=== PATIENT | female | born 1995 | race Caucasian/White ===

== ENCOUNTER 2018-10-14 23:45 | Emergency (ER) | payer MEDICAID ==
[~2018-10-14] VITALS: Ht 177.8 cm; Wt 122.0 kg
[2018-10-15] MEDS ORDERED: IBUPROFEN 800MG TABLET PO ONE (01:45)
[2018-10-15 01:58] VITALS: BP 134/78
== END 2018-10-15 01:56 | disposition home or self-care (01) ==
LOC: ER 23:45
DX: S90.861A Insect bite (nonvenomous), right foot, initial encounter (principal); W57.XXXA Bitten or stung by nonvenomous insect and other nonvenomous arthropods, initial encounter; Y93.89 Activity, other specified; Y92.89 Other specified places as the place of occurrence of the external cause; Y99.8 Other external cause status
CPT/HCPCS: 99283

== ENCOUNTER 2021-11-09 08:44 | Emergency (ER) | payer MEDICAID ==
[~2021-11-09] VITALS: Ht 185.4 cm; Wt 159.0 kg
[2021-11-09] MEDS ORDERED: DIAZEPAM 5 MG TABLET PO ONE ×2 (09:15→09:30)
[2021-11-09] MEDS ORDERED: ONDANSETRON 4MG ODT PO ONE (09:15)
[2021-11-09] MEDS ORDERED: HYDROCODONE/ACETAMINOPHEN 5/325MG TABLET PO ONE (09:15)
[2021-11-09] MEDS ORDERED: METH-773 MT (11:24)
[2021-11-09] MEDS ORDERED: IBUP-2030 MT (11:24)
[2021-11-09] MEDS ORDERED: HYDR-4001 MT ×2 (11:24→12:59)
[2021-11-09 11:50] VITALS: BP 134/86
== END 2021-11-09 11:51 | disposition home or self-care (01) ==
LOC: ER 08:44
DX: M54.50 Low back pain, unspecified (principal); I10 Essential (primary) hypertension
CPT/HCPCS: 72131; 81025; 99284; Q0162

== ENCOUNTER 2022-06-28 04:02 | Observation (INO) | payer MEDICAID ==
[~2022-06-28] VITALS: Ht 188 cm; Wt 161.0 kg
[~2022-06-28 04:02] MED LIST: HYDR-4001 MT; IBUP-2030 MT; LACTATED RINGERS 1,000 ML IV SCH; METH-773 MT
[2022-06-28 05:13] LABS: CLARITY URINE CLEAR (CLEAR); COLOR URINE YELLOW (YELLOW); KETONES URINE NEGATIVE (NEGATIVE); LEUKOCYTE ESTERASE URINE 3+ (NEGATIVE); NITRITE URINE NEGATIVE (NEGATIVE); OCCULT BLOOD URINE 1+ (NEGATIVE); PH URINE 6.5 (4.5-8.0); PROTEIN URINE TRACE (NEGATIVE); SPECIFIC GRAVITY URINE 1.007 (1.005-1.030); UROBILINOGEN URINE 0.2 E.U./dL (0.2-1.0)
[2022-06-28] MEDS ORDERED: LACTATED RINGERS 1,000 ML IV SCH (05:15)
[2022-06-28] MEDS ORDERED: LACTATED RINGERS 1,000 ML IV NR (05:30)
[2022-06-28] MEDS ORDERED: FERROUS SULFATE (05:33)
[2022-06-28] MEDS ORDERED: PRENATAL VITAMIN (05:33)
[2022-06-28] MEDS ORDERED: CEFAZOLIN 2,000 MG in DEXT 5% WATER 100 ML IV NR (06:00)
[2022-06-28] MEDS ORDERED: ACETAMINOPHEN 325MG TABLET PO NR (06:45)
== END 2022-06-28 13:00 | disposition home or self-care (01) ==
LOC: 8 EST LDRP 04:02 → 8 EST A/PP 05:54
PROVIDERS: ADMIT Obstetrics & Gynecology; ATTEND Obstetrics & Gynecology
DX: O99.891 Other specified diseases and conditions complicating pregnancy (principal); M54.50 Low back pain, unspecified; O26.892 Other specified pregnancy related conditions, second trimester; R10.13 Epigastric pain; Z3A.23 23 weeks gestation of pregnancy
CPT/HCPCS: 59025; 76805; 81003; 82731; 87077; 87086; 87186; 96361; 96365; G0378; J0690; J7060; 99281; J7120; G0379

== ENCOUNTER 2022-09-04 12:16 | Observation (INO) | payer MEDICAID ==
[~2022-09-04] VITALS: Ht 188 cm; Wt 158.8 kg
[~2022-09-04 12:16] MED LIST changes: +FERROUS SULFATE; -HYDR-4001 MT; -IBUP-2030 MT; -LACTATED RINGERS 1,000 ML IV SCH; -METH-773 MT; +PRENATAL VITAMIN
== END 2022-09-04 15:30 | disposition home or self-care (01) ==
LOC: 8 EST LDRP 12:16
PROVIDERS: ADMIT Obstetrics & Gynecology; ATTEND Obstetrics & Gynecology
DX: O36.8130 Decreased fetal movements, third trimester, not applicable or unspecified (principal); Z3A.32 32 weeks gestation of pregnancy
CPT/HCPCS: 59025; 76815; 76818; G0378; 99281

== ENCOUNTER 2022-10-20 07:48 | Inpatient (IN) | payer MEDICAID ==
[~2022-10-20] VITALS: Ht 185.4 cm; Wt 158.8 kg
[2022-10-20] MEDS: MISOPROSTOL 100MCG TABLET VG SCH ×3 (01:34→23:12)
[2022-10-20] MEDS ORDERED: RHO(D) IMMUNE GLOBULIN 300 MCG/SYR IM ONE (10:45)
[2022-10-20] MEDS ORDERED: LACTATED RINGERS 1,000 ML IV SCH (10:45)
[2022-10-20] MEDS ORDERED: NALOXONE HCL 0.4 MG/ML 1ML VIAL IM PRN (10:45)
[2022-10-20] MEDS ORDERED: BUTORPHANOL TARTRATE 2 MG/ML VIAL IV PRN (10:45)
[2022-10-20] MEDS ORDERED: CARBOPROST TROMETHAMINE 250 MCG/ML AMPUL IM PRN (10:45)
[2022-10-20] MEDS ORDERED: METHYLERGONOVINE MALEATE 0.2 MG/ML IM PRN (10:45)
[2022-10-20 11:24] LABS: BASOPHILS % 0.3 % (0.0-2.0); EOSINOPHILS % 0.9 % (0.0-5.0); HEMATOCRIT. 34.7 % (36.0-48.0); HEMOGLOBIN. 11.6 g/dL (12.0-16.0); MEAN CORPUSCULAR HEMOGLOBIN 28.5 pg (28.0-32.0); MEAN CORPUSCULAR VOLUME 85.3 fL (81.0-99.0); MEAN PLATELET VOLUME 8.6 fl (7.4-10.4); MONOCYTES % 6.6 % (2.0-8.0); NEUTROPHILS % 74.2 % (40.0-76.0); PLATELET 291 x1000/uL (130-400); RED BLOOD CELL COUNT 4.07 mill/uL (4.2-5.4); RED CELL DISTRIBUTION WIDTH 14.8 % (11.6-14.6)
[2022-10-20 11:40] LABS: CLARITY URINE CLOUDY (CLEAR); COLOR URINE DARK YELLOW (YELLOW); KETONES URINE NEGATIVE (NEGATIVE); LEUKOCYTE ESTERASE URINE 1+ (NEGATIVE); NITRITE URINE NEGATIVE (NEGATIVE); OCCULT BLOOD URINE NEGATIVE (NEGATIVE); PROTEIN URINE TRACE (NEGATIVE); SPECIFIC GRAVITY URINE 1.023 (1.005-1.030); UROBILINOGEN URINE 0.2 E.U./dL (0.2-1.0)
[2022-10-20 11:51] LABS: *AMPHETAMINES SCREEN URINE NEGATIVE (NEGATIVE); *BARBITURATES SCREEN URINE NEGATIVE (NEGATIVE); *BENZODIAZEPINES SCREEN URINE NEGATIVE (NEGATIVE); *COCAINE SCREEN URINE NEGATIVE (NEGATIVE); CANNABINOID URINE SCREEN NEGATIVE (NEGATIVE); METHADONE URINE SCREEN NEGATIVE (NEGATIVE); OPIATES URINE SCREEN NEGATIVE (NEGATIVE); PHENCYCLIDINE URINE SCREEN NEGATIVE (NEGATIVE)
[2022-10-20] MEDS ORDERED: PENICILLIN G POTASSIUM 5 MMU in DEXT 5% WATER 100 ML IV NR (12:00)
[2022-10-20] MEDS: LACTATED RINGERS 1,000 ML IV SCH ×2 (12:13→17:26)
[2022-10-20] MEDS: OXYTOCIN 30 UNITS/500ML NS PMX 500 ML IV SCH (12:16)
[2022-10-20 13:13] LABS: HEPATITIS B SURFACE ANTIGEN NEGATIVE
[2022-10-20 13:15] LABS: PARTIAL THROMBOPLASTIN TIME 28.2 sec (23.4-31.0); PROTHROMBIN TIME 10.3 sec (9.6-11.0)
[2022-10-20] MEDS: PENICILLIN G POTASSIUM 2.5 MMU in DEXTROSE 5% WATER 50 ML IV SCH ×3 (17:42→22:23)
[2022-10-20] MEDS: BUTORPHANOL TARTRATE 1 MG/ML VIAL IJ PRN (23:10)
[2022-10-20] MEDS: LIDOCAINE HCL 1% 20ML VIAL (Pyxis) INJ INFIL SCH (23:11)
[2022-10-21] MEDS: PENICILLIN G POTASSIUM 2.5 MMU in DEXTROSE 5% WATER 50 ML IV SCH ×7 (00:15→20:00)
[2022-10-21] MEDS: LACTATED RINGERS 1,000 ML IV SCH ×4 (01:34→23:21)
[2022-10-21] MEDS: MISOPROSTOL 100MCG TABLET VG SCH ×4 (02:00→20:00)
[2022-10-21] MEDS: BUTORPHANOL TARTRATE 1 MG/ML VIAL IJ PRN ×2 (05:24→05:29)
[2022-10-21] MEDS: LIDOCAINE HCL 1% 20ML VIAL (Pyxis) INJ INFIL SCH (05:42)
[2022-10-21] MEDS: OXYTOCIN 30 UNITS/500ML NS PMX 500 ML IV SCH (12:34)
[2022-10-22] MEDS: PENICILLIN G POTASSIUM 2.5 MMU in DEXTROSE 5% WATER 50 ML IV SCH ×4 (00:33→16:00)
[2022-10-22] MEDS: LACTATED RINGERS 1,000 ML IV SCH ×2 (07:19→17:11)
[2022-10-23] MEDS: BUTORPHANOL TARTRATE 1 MG/ML VIAL IJ PRN ×2 (00:47→06:17)
[2022-10-23] MEDS: LACTATED RINGERS 1,000 ML IV SCH ×4 (01:04→12:45)
[2022-10-23] MEDS ORDERED: ROPIVACAINE HCL/PF EPIDURAL 200 ML EPI SCH (11:45)
[2022-10-23] MEDS: PENICILLIN G POTASSIUM 2.5 MMU in DEXTROSE 5% WATER 50 ML IV SCH ×2 (12:46→16:50)
[2022-10-23] MEDS ORDERED: FENTANYL CITRATE/PF 50MCG/ML 2ML VIAL ONE ×3 (14:53→19:30)
[2022-10-23] MEDS ORDERED: ROPIVACAINE HCL/PF EPIDURAL 200 ML EPI ONE (19:30)
[2022-10-23] MEDS ORDERED: LIDOCAINE HCL 1% 20ML VIAL (Pyxis) INJ INFIL SCH (21:00)
[2022-10-23] MEDS ORDERED: OXYCODONE HCL/ACETAMINOPHEN 5/325MG TABLET PO PRN (22:15)
[2022-10-23] MEDS ORDERED: BISACODYL 10MG SUPP PR PRN (22:15)
[2022-10-23] MEDS ORDERED: HEMORRHOIDAL SUPP PR PRN (22:15)
[2022-10-23] MEDS ORDERED: IBUPROFEN 400MG TABLET PO PRN (22:15)
[2022-10-23] MEDS ORDERED: RHO(D) IMMUNE GLOBULIN 300 MCG/SYR IM PRN (22:15)
[2022-10-23] MEDS ORDERED: DIPHENHYDRAMINE 25MG CAPSULE PO PRN (22:15)
[2022-10-23] MEDS ORDERED: OXYTOCIN 30 UNITS/500ML NS PMX 500 ML IV SCH (22:15)
[2022-10-23] MEDS ORDERED: LANOLIN OINT 7GM TUBE TOP PRN (22:15)
[2022-10-23] MEDS ORDERED: BENZOCAINE/LANOLIN/ALOE VERA SPRAY TOP PRN (22:15)
[2022-10-23] MEDS ORDERED: GLYCERIN/WITCH HAZEL LEAF MEDICATED PAD TOP PRN (22:15)
[2022-10-23 23:15] VITALS: BP 120/64
[2022-10-23 23:45] VITALS: BP 116/66
[2022-10-24] MEDS: OXYTOCIN 30 UNITS/500ML NS PMX 500 ML IV SCH ×2 (01:32→01:42)
[2022-10-24 04:30] VITALS: BP 125/74
[2022-10-24] MEDS: IBUPROFEN 800MG TABLET PO PRN ×2 (04:42→16:38)
[2022-10-24 07:27] LABS: BASOPHILS % 0.1 % (0.0-2.0); EOSINOPHILS % 0.2 % (0.0-5.0); HEMATOCRIT. 28.1 % (36.0-48.0); HEMOGLOBIN. 9.5 g/dL (12.0-16.0); LYMPHOCYTES % 12.8 % (20.0-50.0); MEAN CORPUSCULAR HEMOGLOBIN 28.6 pg (28.0-32.0); MEAN PLATELET VOLUME 8.4 fl (7.4-10.4); MONOCYTES % 8.3 % (2.0-8.0); NEUTROPHILS % 78.6 % (40.0-76.0); PLATELET 255 x1000/uL (130-400); RED BLOOD CELL COUNT 3.31 mill/uL (4.2-5.4); RED CELL DISTRIBUTION WIDTH 14.5 % (11.6-14.6)
[2022-10-24] MEDS: MAGNESIUM/ALUMINUM HYDROXIDE/SIMETHICONE 30ML UDC PO SCH ×3 (07:30→21:46)
[2022-10-24 08:00] VITALS: BP 119/67
[2022-10-24] MEDS: SIMETHICONE 80MG TABLET CHEW PO SCH ×3 (08:00→21:47)
[2022-10-24] MEDS ORDERED: PRENATAL VIT/FE FUMARATE/FA TABLET PO SCH (09:00)
[2022-10-24] MEDS: FERROUS SULFATE 325MG TABLET PO SCH ×3 (09:06→16:38)
[2022-10-24 16:00] VITALS: BP 129/66
[2022-10-24 19:30] VITALS: BP 111/57
[2022-10-24] MEDS ORDERED: DOCUSATE SODIUM 100MG CAPSULE PO SCH (21:00)
[2022-10-25 04:00] VITALS: BP 98/53
[2022-10-25 08:00] VITALS: BP 131/82
== END 2022-10-25 12:00 | disposition home or self-care (01) | DRG 560 ==
LOC: 8 EST LDRP 07:48 → OBSVTOIN 07:48 → 8EST 10-23 23:10
PROVIDERS: ADMIT Obstetrics & Gynecology; ATTEND Obstetrics & Gynecology
PROC: 10E0XZZ Delivery of Products of Conception, External Approach (ICD-10-PCS; principal; 2022-10-23)
PROC: 0KQM0ZZ Repair Perineum Muscle, Open Approach (ICD-10-PCS; 2022-10-23)
PROC: 3E0R3BZ Introduction of Anesthetic Agent into Spinal Canal, Percutaneous Approach (ICD-10-PCS; 2022-10-23)
PROC: 00HU33Z Insertion of Infusion Device into Spinal Canal, Percutaneous Approach (ICD-10-PCS; 2022-10-23)
DX: O36.63X0 Maternal care for excessive fetal growth, third trimester, not applicable or unspecified (principal); Z37.0 Single live birth; D62 Acute posthemorrhagic anemia; Z20.822 Contact with and (suspected) exposure to COVID-19; O70.1 Second degree perineal laceration during delivery; O99.214 Obesity complicating childbirth; E66.01 Morbid (severe) obesity due to excess calories; O99.02 Anemia complicating childbirth; Z3A.39 39 weeks gestation of pregnancy
CPT/HCPCS: 36415; 76805; 76818; 80305; 81003; 82962; 85025; 86592; 86703; 86762; 86850; 86900; 87340; 87426; 99281; J0595; J2540; J2795; J3010; J3490; J7060; J7120; A4315; J2590